=== PATIENT | male | born 1975 | race Two or more races ===

== ENCOUNTER 2023-07-23 14:28 | Emergency (ER) | payer SELFPAY ==
[~2023-07-23] VITALS: Ht 157.5 cm; Wt 83.9 kg
[2023-07-23] MEDS ORDERED: IBUP-1455 PO (15:00)
[2023-07-23] MEDS ORDERED: CEPH500C PO (15:00)
[2023-07-23] MEDS ORDERED: BACIOIN15 TOP (15:00)
[2023-07-23] MEDS ORDERED: ACE3T PO (15:00)
[2023-07-23] MEDS ORDERED: BACITRACIN TOP OINT 1 UD PKG TOP ONE ×2 (15:22→16:00)
[2023-07-23 15:50] VITALS: BP 145/95; PULSE 86; RESP 17; O2SAT 96
== END 2023-07-23 15:53 | disposition home or self-care (01) ==
LOC: ER 14:28
DX: S61.213A Laceration without foreign body of left middle finger without damage to nail, initial encounter (principal); X58.XXXA Exposure to other specified factors, initial encounter; Y93.89 Activity, other specified; Y92.098 Other place in other non-institutional residence as the place of occurrence of the external cause; Y99.8 Other external cause status